=== PATIENT | female | born 1935 | race Two or more races ===

== ENCOUNTER 2021-06-06 22:38 | Emergency (ER) | payer OTHER ==
[~2021-06-06] VITALS: Ht 152.4 cm; Wt 52.2 kg
[~2021-06-06 22:38] MED LIST: ATENOLOL50 MG; COZAAR50 MG; ENALAPRIL MALEA20 MG; GLIPIZIDE10 MG; METFORMIN HCL1000 MG
[2021-06-06] MEDS ORDERED: CLONAZEPAM0.5 MG PO (22:55)
[2021-06-07] MEDS ORDERED: NORFLEX100MG PO (01:34)
[2021-06-07] MEDS ORDERED: NAPROXEN375 MG PO (01:34)
== END 2021-06-07 02:02 | disposition home or self-care (01) ==
LOC: ER 22:38
DX: S40.011A Contusion of right shoulder, initial encounter (principal); S70.02XA Contusion of left hip, initial encounter; S70.01XA Contusion of right hip, initial encounter; S50.01XA Contusion of right elbow, initial encounter; M54.2 Cervicalgia; M54.5 Low back pain; W01.198A Fall on same level from slipping, tripping and stumbling with subsequent striking against other object, initial encounter; Y93.89 Activity, other specified; Y92.63 Factory as the place of occurrence of the external cause; Y99.8 Other external cause status

== ENCOUNTER 2022-06-10 10:09 | Emergency (ER) | payer OTHER ==
[~2022-06-10] VITALS: Ht 165.1 cm; Wt 47.6 kg
[~2022-06-10 10:09] MED LIST changes: +CLONAZEPAM0.5 MG PO; +NAPROXEN375 MG PO; +NORFLEX100MG PO
== END 2022-06-10 16:43 | disposition home or self-care (01) ==
LOC: ER 10:09
DX: K62.89 Other specified diseases of anus and rectum (principal); K62.5 Hemorrhage of anus and rectum; K52.89 Other specified noninfective gastroenteritis and colitis; K59.00 Constipation, unspecified; E11.9 Type 2 diabetes mellitus without complications; Z79.84 Long term (current) use of oral hypoglycemic drugs; I10 Essential (primary) hypertension; Z20.822 Contact with and (suspected) exposure to COVID-19